=== PATIENT | male | born 1965 | race Caucasian/White ===

== ENCOUNTER 2016-08-26 14:10 | Inpatient (IN) | payer OTHER ==
[~2016-08-26] VITALS: Ht 170.2 cm; Wt 103.4 kg
--- NOTE | ~2016-08-26 | EKG ---
[address] [place] [address] ELECTROCARDIOGRAM REPORT Name: KEMAR COKER Room #: 453-P ADM IN M.R.#: [id number] Admission: 08/26/16 Attend Phys: Oleg Smith DO Discharge: Date of : 63 Report #: [id number] THIS REPORT FOR: //name// Test Date: 2016-08-26 Test Time: 15:28:48 Pat Name: KEMAR COKER Department: Room: 453 P Gender: M [employer]sembler [employer]: LUIS F : 1965 Requested By: Kelvin Baer Order Number: [id number] MD: Bryce Cornelius Measurements Intervals [place] Rate: 75 P: 27 NM: 190 QRS: -12 QRSD: 150 T: 143 QT: 417 QTc: 466 Interpretive Statements Sinus rhythm Left bundle branch block Compared to ECG 09/25/2013 06:23:44 Left bundle-branch block now present Electronically Signed On 08-27-2016 8:52:19 CDT by Bryce Cornelius [email or web address] <ELECTRONICALLY SIGNED> By: Bryce Cornelius MD, MERGED WITH [facility] 08/27/16 [id number] 1528 Bryce Cornelius MD, MERGED WITH [facility] /EPI
[~2016-08-26 14:10] MED LIST: ASPIRIN81 M2 PO; BAYER CHEWABLE81 MG PO; CARVEDILOL12.5 MG PO; CARVEDILOL25 MG PO; CHLORHEXADINE120 ML TP; COLACE100 MG PO; COREG6.25 MG PO; COUMADIN 5 MG TA5 M1 PO; COUMADIN5 MG PO; ENOXAPARIN100 MG/11 SUBQ; FERREX 150 FOR1 EAC1 PO; GLYBURIDE 5 MG T5 M1 PO; HUMALOG100 UNIT/1 SQ; KLOR-CON 10 ER10 MEQ PO; LANTUS100 UNIT/M SUBQ; LASIX 20 MG TAB20 MG PO; LASIX 40 MG TAB40 M1 PO; LIPITOR 20 MG T20 M1 PO; LISINOPRIL10 MG PO; LISINOPRIL20 MG PO; LOVASTAT20 PO; METFORMIN HCL1000 MG PO; MOM PO; MULTI VITAMIN1 EACH PO; NORCO 5-325 TA1 EACH PO; PERCOCET PO; POTASSIUM20 PO; SENNA PO; TYLENOL325 MG PO
[2016-08-26] MEDS ORDERED: BYSTOLIC10 MG PO (14:22)
[2016-08-26] MEDS ORDERED: AMLODIPINE BESY10 MG PO (14:22)
[2016-08-26] MEDS ORDERED: [UNRECOGNIZED DRUG - OTHER] PO (14:25)
[2016-08-26] MEDS ORDERED: JANUVIA100 MG PO (14:25)
[2016-08-26] MEDS ORDERED: SINGULAIR 10 MG10 M1 PO (14:26)
[2016-08-26] MEDS ORDERED: REQUIP1 MG PO (14:27)
[2016-08-26] MEDS ORDERED: GLYBURIDE 2.52.5 MG PO (14:34)
[2016-08-26 15:09] VITALS: BP 151/89
[2016-08-26 15:44] LABS: HEMOGLOBIN 16.3 gm/dL (14.0-18.0); MCH 28.8 pg (26.0-34.0); MCV 84.9 fL (80.0-100.0); RBC 5.66 mil/uL (4.50-6.00); RDW 14.9 % (10.5-14.5); WBC 9.8 thou/uL (4.0-11.0)
[2016-08-26 15:53] LABS: CALCIUM 8.9 mg/dL (8.5-10.1); CREATININE 0.9 mg/dL (0.7-1.3); POTASSIUM 4.4 mmol/L (3.5-5.1)
[2016-08-26 15:55] LABS: ALBUMIN 3.4 g/dL (3.4-5.0); TOTAL BILIRUBIN 0.5 mg/dL (<0.1-1.0); TOTAL PROTEIN 6.8 g/dL (6.4-8.2)
[2016-08-26 17:42] LABS: INR 3.1; PROTIME 32.6 Seconds (9.3-11.4)
[2016-08-26 19:20] VITALS: BP 125/75
[2016-08-27 03:57] LABS: HEMATOCRIT 43.9 % (42.0-52.0); HEMOGLOBIN 14.9 gm/dL (14.0-18.0); MCH 28.8 pg (26.0-34.0); MCV 84.8 fL (80.0-100.0); RBC 5.18 mil/uL (4.50-6.00); WBC 8.1 thou/uL (4.0-11.0)
[2016-08-27 04:00] VITALS: BP 127/79
[2016-08-27 04:06] LABS: ANION GAP 7 mmol/L (7-16); BUN 22 mg/dL (7-18); CALCIUM 8.5 mg/dL (8.5-10.1); CHLORIDE 105 mmol/L (98-107); CO2 27 mmol/L (21-32); CREATININE 0.8 mg/dL (0.7-1.3); GLUCOSE 128 mg/dL (74-106); POTASSIUM 4.3 mmol/L (3.5-5.1); SODIUM 139 mmol/L (136-145)
[2016-08-27 07:10] VITALS: BP 160/96
[2016-08-27 10:59] LABS: CHOLESTEROL 187 mg/dL (<200); HDL CHOLESTEROL 35 mg/dL (>40); TC:HDL 5.3 Ratio (Not establshd); TRIGLYCERIDE 503 mg/dL (<150); VLDL 101 mg/dL (<40)
[2016-08-27 12:13] VITALS: BP 106/64
[2016-08-27 14:38] VITALS: BP 106/64
[2016-08-28 04:08] LABS: GLYCOHEMOGLOBIN (HGB A1C) 8.6 % (4.8-5.6)
[2016-08-29 13:17] LABS: ALPHA TOCOPHEROL 19.3 mg/L (5.3-17.5)
== END 2016-08-27 14:40 | disposition home or self-care (01) | DRG 65 ==
LOC: 4W 14:10
PROVIDERS: Hospitalist; Psychiatry & Neurology Neurology
DX: I63.9 Cerebral infarction, unspecified (principal); I42.9 Cardiomyopathy, unspecified; E11.9 Type 2 diabetes mellitus without complications; I10 Essential (primary) hypertension; I35.0 Nonrheumatic aortic (valve) stenosis; E78.5 Hyperlipidemia, unspecified; E78.1 Pure hyperglyceridemia; Z95.2 Presence of prosthetic heart valve; Z79.82 Long term (current) use of aspirin; Z79.899 Other long term (current) drug therapy; Z88.0 Allergy status to penicillin
CPT/HCPCS: 10045